=== PATIENT | female | born 2000 | race Caucasian/White ===

== ENCOUNTER 2021-09-22 19:44 | Emergency (ER) | payer SELFPAY ==
[~2021-09-22] VITALS: Ht 160 cm; Wt 65.9 kg
[2021-09-22 19:53] VITALS: TEMP 97.2
[2021-09-22 20:48] LABS: BASO # 0.1 K/mm3 (0.0-0.2); BASO % 0.7 % (0.0-2.0); EOS # 0.2 K/mm3 (0.0-0.7); EOS % 2.7 % (0.0-4.0); GRAN # 4.2 K/mm3 (1.4-6.5); GRAN % 49.5 % (42.2-75.2); HEMATOCRIT 37.9 % (37.0-47.0); LYMPH # 3.2 K/mm3 (1.2-3.4); LYMPH % 37.1 % (20.0-51.0); MEAN CELL VOLUME 87 fl (80.0-100.0); MEAN CORPUSCULAR HEMOGLOBIN 30 pg (27-31); MEAN CORPUSCULAR HGB CONC 34 g/dl (33.0-37.0); MEAN PLATELET VOLUME 9.4 fl (7.4-10.4); MONO # 0.8 K/mm3 (0.1-0.6); MONO % 9.9 % (1.7-9.3); PLATELET COUNT 330 K/mm3 (130-400); RED BLOOD COUNT 4.35 M/mm3 (4.10-5.30); REDCELL DISTRIBUTION WIDTH-CV 12.2 % (11.5-14.5)
[2021-09-22 21:18] LABS: ALBUMIN 4.1 gm/dL (3.5-5.0); BILIRUBIN,TOTAL 0.2 mg/dL (0.2-1.2); C-REACTIVE PROTEIN 0.39 mg/dL (0.00-0.50); CREATININE, serum 0.85 mg/dL (0.57-1.11); POTASSIUM 3.7 mmol/L (3.5-4.5); TOTAL PROTEIN 7.6 gm/dL (6.2-8.1)
[2021-09-22 21:39] LABS: COLLECTION METHOD CLEAN CATCH
[2021-09-22 21:48] LABS: PH 6 (5-8); SQUAMOUS EPITHELIAL None Seen /hpf (0-10); URINE APPEARANCE Clear (CLEAR/HAZY); URINE BACTERIA Rare /hpf (NONE SEEN); URINE BILIRUBIN Negative (NEGATIVE); URINE BLOOD Negative (NEGATIVE); URINE COLOR Straw (YELLOW); URINE GLUCOSE Negative (NEGATIVE); URINE KETONE Trace (NEGATIVE); URINE LEUKOCYTE ESTERASE Negative (NEGATIVE); URINE NITRATE Negative (NEGATIVE); URINE PROTEIN(semi-quant) Negative (NEGATIVE); URINE RBC 0-2 /hpf (0-2); URINE UROBILINOGEN Negative (NEGATIVE)
[2021-09-22 22:39] VITALS: BP 116/78; PULSE 76
== END 2021-09-22 22:39 | disposition home or self-care (01) ==
LOC: COL.ER 19:44
PROVIDERS: Nurse Practitioner
DX: K92.1 Melena (principal); F17.290 Nicotine dependence, other tobacco product, uncomplicated
CPT/HCPCS: J7030